=== PATIENT | female | born 1965 | race Caucasian/White ===

== ENCOUNTER 2018-03-09 21:23 | Emergency (ER) | payer MEDICAID ==
[2018-03-09 21:39] VITALS: BP 124/88
[2018-03-09] MEDS ORDERED: PENICILLIN VK 500 MG TAB PO ONE (22:14)
--- NOTE | 2018-03-09 22:18 | EDPHY ---
H & P Time Seen by Provider: 03/09/18 22:05 HPI/ROS: CHIEF COMPLAINT: Left jaw swelling, allergic reaction HISTORY OF PRESENT ILLNESS: Patient is a 52-year-old female with a history of atopic dermatitis an allergies. She presents emergency department with mild left jaw swelling since earlier in the day. She states it is minimally tender to touch. She has noticed no is significant warmth or redness. She has no recent dental injury or tooth pain. Her jaw is not uncomfortable with movement. She states she had slight pain extending into her left lower eye. The patient reports that she accidentally took soy sauce. She has a known allergy to this. She noticed mild increased facial redness that was diffuse. This is now improved. She has no oral or tongue swelling. No throat tightness. No shortness of breath. No wheezing. No fevers or chills. REVIEW OF SYSTEMS: 10 systems were reveiwed and are negative with the exception of the elements mentioned in the history of present illness. Past Medical/Surgical History: Includes atopic dermatitis Physical Exam: Vitals noted GENERAL: Well-appearing, in no acute distress, alert. HEENT: Eyes normal to inspection, normal pharynx, no signs of dehydration. Patient has mild swelling on the left lower jaw. This is a palpable small pea- sized nodule. There is no warmth or erythema. She has no tenderness at the angle of her jaw. She is able to move her jaw freely. No other facial tenderness to palpation. NECK: Normal, supple. No lymphadenopathy RESPIRATORY: Clear to auscultation bilaterally, no rales, rhonchi or wheezing. Normal CVS: Regular rate and rhythm, no rubs, murmurs, or gallops. ABDOMEN: Soft, nontender, nondistended, no organomegaly. BACK: Normal to inspection, no CVA tenderness. SKIN: Normal color, no rash, warm, dry. No pallor. EXTREMITIES: No pedal edema, no joint swelling. NEURO/PSYCH: Alert and oriented, normal mood and affect. No obvious cranial nerve deficit. Constitutional: Initial Vital Signs Temperature (C) 36.6 C 03/09/18 21:29 Heart Rate 94 03/09/18 21:29 Respiratory Rate 18 03/09/18 21:29 Blood Pressure 124/88 H 03/09/18 21:29 O2 Sat (%) 94 03/09/18 21:29 O2 Delivery Mode Room Air Allergies/Adverse Reactions: almond Allergy (Verified 03/09/18 21:42) cinnamon Allergy (Verified 03/09/18 22:05) glycerin [From Glycerolizing] Allergy (Verified 03/09/18 22:05) lidocaine Allergy (Verified 03/09/18 22:05) nickel Allergy (Verified 03/09/18 21:42) peanut Allergy (Verified 03/09/18 21:42) potassium [From Glycerolizing] Allergy (Verified 03/09/18 22:05) sodium lactate [From Glycerolizing] Allergy (Verified 03/09/18 22:05) sodium phosphate [From Glycerolizing] Allergy (Verified 03/09/18 22:05) soy Allergy (Verified 03/09/18 21:42) water [From Glycerolizing] Allergy (Verified 03/09/18 22:05) fruits Allergy (Uncoded 03/09/18 21:42) Home Medications: Medication Instructions Recorded Additional Topical Cream 03/09/18 Benadryl 03/09/18 Desonide 0.05% Cream (*) 03/09/18 Penicillin V Potassium [Pen Vk] 500 mg PO TID #21 tab 03/09/18 Medical Decision Making ED Course/Re-evaluation: In the emergency department I discussed possible etiologies with the patient. I answered all her questions. At this time I do not feel she needs CT imaging. Patient was given penicillin 5 mg orally for possible dental infection. I do not feel this is an facial cellulitis. She is afebrile. There is no redness or warmth on her face. She has no discomfort with movement of her jaw. Patient does not appear to be having an acute allergic reaction. She has no signs respiratory distress, tongue or mouth swelling. The patient will take her entire course of antibiotics. She was given warnings prior to leaving. She will return with worsening symptoms. Differential Diagnosis: My differential includes but is not limited to facial cellulitis, dental abscess , allergic reaction, anaphylaxis, lymphadenopathy - Data Points Medications Given: Discontinued Medications Penicillin V Potassium (Pen Vk) 500 mg PO EDNOW ONE PRN Reason: Protocol Stop: 03/09/18 22:15 Last Admin: 03/09/18 22:19 Dose: 500 mg Departure - Departure Disposition: Home, Routine, Self-Care Clinical Impression: Facial swelling Condition: Good Instructions: Atypical Facial Pain (ED) Additional Instructions: Take your entire course of antibiotics. Return with increasing facial pain, swelling, redness, fever, vomiting or any other concerns. Referrals: Alissa Chappell DO [Doctor of Osteopathy] - 3-4 days, if not improved Prescriptions: Penicillin V Potassium [Pen Vk] 500 mg PO TID #21 tab
== END 2018-03-09 22:49 | disposition home or self-care (01) ==
DX: R22.0 Localized swelling, mass and lump, head (principal)

== ENCOUNTER 2018-03-11 23:37 | Emergency (ER) | payer MEDICAID ==
--- NOTE | 2018-03-12 00:25 | EDPHY ---
H & P Stated Complaint: rash, redness, and itching for poss med Time Seen by Provider: 03/11/18 23:56 HPI/ROS: Chief complaint: Adverse reaction to penicillin History of present illness: This is a 53-year-old female who was seen in the emergency department 2 days ago and started on penicillin for a possible infection of the jaw who returns concerned she is having a reaction to the penicillin. Patient has a known history of multiple allergies to medications. When she looked at the secondary ingredients in the penicillin she noted polyethylene glycol which is a known allergen to her. She has a history of atopic dermatitis. She feels symptoms have flared up since then. On my evaluation she would like to see if she can be switched to another antibiotic that does not contain polyethylene glycol. She states she is followed closely by her primary care doctor [facility] for her atopic dermatitis. She does not want me to address this this evening. She has an appointment with her doctor tomorrow to further address her other ongoing issues. Review of systems: A 10 point review of systems was obtained and other than described above was negative - Personal History LMP (Females 10-55): Post Menopausal Current Tetanus/Diphtheria Vaccine: Yes Current Tetanus Diphtheria and Acellular Pertussis (TDAP): Yes - Medical/Surgical History Hx Asthma: No Hx Chronic Respiratory Disease: No Hx Diabetes: No Hx Cardiac Disease: No Hx Renal Disease: No Hx Cirrhosis: No Hx Alcoholism: No Hx HIV/AIDS: No Hx Splenectomy or Spleen Trauma: No Other PMH: atopic dermatitis, hyperlipidemia - Social History Smoking Status: Never smoked - Physical Exam Exam: General Appearance: Alert and no distress. Eyes: Pupils equal and round no injection. ENT: Tympanic membranes, external auditory canals, external easr and surrounding soft tissue including over the mastoids are unremarkable. Nasopharynx is not injected. There is no rhinorrhea. Oropharynx is not injected. There is no edema. There is no exudate. There is no asymmetry. The uvula is midline. No elevation of the tongue. There is no hoarseness, no drooling, no trismus, no stridor. No angioedema. Respiratory: Chest is non tender, lungs are clear to auscultation. Cardiac: regular rate and rhythm Musculoskeletal: Mild fullness around the angle of the mandible bilaterally. She is ambulating without difficulty. Skin: Diffuse erythematous rash the face, upper torso and arms. Constitutional: Initial Vital Signs Temperature (C) 36.6 C 03/11/18 23:43 Heart Rate 69 03/11/18 23:43 Respiratory Rate 16 03/11/18 23:43 Blood Pressure 124/86 H 03/11/18 23:43 O2 Sat (%) 97 03/11/18 23:43 O2 Delivery Mode Room Air Allergies/Adverse Reactions: almond Allergy (Verified 03/11/18 23:47) cinnamon Allergy (Verified 03/11/18 23:47) glycerin [From Glycerolizing] Allergy (Verified 03/11/18 23:47) lidocaine Allergy (Verified 03/11/18 23:47) nickel Allergy (Verified 03/11/18 23:47) peanut Allergy (Verified 03/11/18 23:47) potassium [From Glycerolizing] Allergy (Verified 03/11/18 23:47) sodium lactate [From Glycerolizing] Allergy (Verified 03/11/18 23:47) sodium phosphate [From Glycerolizing] Allergy (Verified 03/11/18 23:47) soy Allergy (Verified 03/11/18 23:47) water [From Glycerolizing] Allergy (Verified 03/11/18 23:47) fruits Allergy (Uncoded 03/11/18 23:47) Home Medications: Medication Instructions Recorded Additional Topical Cream 03/09/18 Benadryl 03/09/18 Desonide 0.05% Cream (*) 03/09/18 Penicillin V Potassium [Pen Vk] 500 mg PO TID #21 tab 03/09/18 Amoxicillin Trihydrate [Amoxil] 500 mg PO TID 7 Days cap 03/12/18 Medical Decision Making ED Course/Re-evaluation: Patient is discussed with my secondary supervising physician Dr. Constantino Lizarraga. Patient presents requesting to be changed to a new antibiotic that does not contain polyethylene glycol as a secondary ingredient as this is known allergen to her. I have consulted with pharmacy. We have amoxicillin in stock that does not appear to contain this ingredient. I have written a prescription and given her a full course in the emergency department of this specific stock of amoxicillin, 500 mg three times daily for 7 days. Patient is nontoxic. There is no evidence of severe allergic reaction or other complications. She has made it clear she does not want me to address any other issues currently going on, she only wants to be switched to a new medication. She has an appointment with her primary care doctor tomorrow and will follow up with him for further evaluation and care. Strict return precautions are given. The patient voiced understanding and agreement with plan. Differential Diagnosis: Included but not limited to medication reaction, allergic reaction, atopic dermatitis flare - Data Points Laboratory Results: Laboratory Results 03/12/18 00:21 03/12/18 00:00 03/12/18 03/12/18 00:21 00:00 WBC 5.57 10^3/uL 10^3/uL (3.80-9.50) RBC 4.62 10^6/uL 10^6/uL (4.18-5.33) Hgb 13.4 g/dL g/dL (12.6-16.3) Hct 39.1 % % (38.0-47.0) MCV 84.6 fL fL (81.5-99.8) MCH 29.0 pg pg (27.9-34.1) MCHC 34.3 g/dL g/dL (32.4-36.7) RDW 13.3 % % (11.5-15.2) Plt Count 223 10^3/uL 10^3/uL (150-400) MPV 10.4 fL fL (8.7-11.7) Neut % (Auto) 61.3 % % (39.3-74.2) Lymph % (Auto) 26.4 % % (15.0-45.0) Warrick % (Auto) 7.7 % % (4.5-13.0) Eos % (Auto) 3.9 % % (0.6-7.6) Baso % (Auto) 0.5 % % (0.3-1.7) Nucleat RBC Rel Count 0.0 % % (0.0-0.2) Absolute Neuts (auto) 3.41 10^3/uL 10^3/uL (1.70-6.50) Absolute Lymphs (auto) 1.47 10^3/uL 10^3/uL (1.00-3.00) Absolute Monos (auto) 0.43 10^3/uL 10^3/uL (0.30-0.80) Absolute Eos (auto) 0.22 10^3/uL 10^3/uL (0.03-0.40) Absolute Basos (auto) 0.03 10^3/uL 10^3/uL (0.02-0.10) Absolute Nucleated RBC 0.00 10^3/uL 10^3/uL (0-0.01) Immature Gran % 0.2 % % (0.0-1.1) Immature Gran # 0.01 10^3/uL 10^3/uL (0.00-0.10) Sodium 136 mEq/L mEq/L (135-145) Potassium 4.3 mEq/L mEq/L (3.3-5.0) Chloride 103 mEq/L mEq/L (97-110) Carbon Dioxide 26 mEq/l mEq/l (22-31) Anion Gap 7 mEq/L mEq/L (6-14) BUN 5 mg/dL L mg/dL (7-23) Creatinine 0.6 mg/dL mg/dL (0.6-1.0) Estimated GFR > 60 Glucose 94 mg/dL mg/dL (70-100) Calcium 9.6 mg/dL mg/dL (8.5-10.4) Departure - Departure Disposition: Home, Routine, Self-Care Clinical Impression: Medication reaction Qualifiers: Encounter type: initial encounter Qualified Code(s): T50.905A - Adverse effect of unspecified drugs, medicaments and biological substances, initial encounter Condition: Good Instructions: Amoxicillin (By mouth), Allergy Testing (ED) Additional Instructions: Follow-up with your doctor tomorrow as planned If symptoms worsen or new symptoms develop return to the emergency department for recheck Referrals: Ronel Mallory MD [Primary Care Provider] - As per Instructions Prescriptions: Amoxicillin Trihydrate [Amoxil] 500 mg PO TID 7 Days cap
[2018-03-12 01:04] LABS: PLATELET COUNT 223 10^3/uL (150-400)
[2018-03-12 01:11] VITALS: BP 121/74
== END 2018-03-12 01:11 | disposition home or self-care (01) ==
DX: R21 Rash and other nonspecific skin eruption (principal); T36.0X5A Adverse effect of penicillins, initial encounter; L20.9 Atopic dermatitis, unspecified

== ENCOUNTER → 2018-08-22 | Outpatient (CLI) | payer MEDICAID | LOC: CIMAGING 13:03 | PROVIDERS: ATTEND Family Medicine | DX: Z12.31 Encounter for screening mammogram for malignant neoplasm of breast (principal) ==